=== PATIENT | female | born 1930 | race Caucasian/White ===

== ENCOUNTER 2017-01-15 14:17 | Emergency (ER) | payer OTHER ==
[~2017-01-15] VITALS: Ht 165.1 cm; Wt 65.3 kg
[~2017-01-15 14:17] MED LIST: CHILDREN'S ASPI81 M1 PO; HYDROCHLOROTHIA25 M1 PO; LEVOTHYROXINE PO; LEVOTHYROXINE88 MCG PO; LISINOPRIL40 M1 PO; LOPRESSOR50 M1 PO; SIMVASTATIN40 M1 PO
[2017-01-15 15:07] LABS: ABSOLUTE BASOPHIL COUNT 0 /CUMM (0.0-0.2); ABSOLUTE EOSINOPHIL COUNT 0.1 /CUMM (0.0-0.7); ABSOLUTE GRANULOCYTE CT 7.6 /CUMM (1.4-6.5); ABSOLUTE LYMPH COUNT 1.1 /CUMM (1.2-3.4); ABSOLUTE MONOCYTE COUNT 0.6 /CUMM (0.10-0.60); BASOPHIL % 0.1 % (0.0-2.0); EOSINOPHIL % 0.9 % (0-5); GRANULOCYTE % 80.8 % (42.2-75.2); MEAN CORPUSCULAR HGB 29.8 PG (27.0-31.0); MEAN CORPUSCULAR HGB CONC 32.8 G/DL (33.0-37.0); MEAN CORPUSCULAR VOLUME 90.8 FL (81.0-99.0); MEAN PLATELET VOLUME 8.9 FL (7.4-10.4); PLATELET COUNT 212 /CUMM (130-400); RBC DISTRIBUTION WIDTH 13.7 % (11.5-14.5); WHITE BLOOD CELL COUNT 9.4 /CUMM (4.8-10.8)
[2017-01-15] MEDS ORDERED: PANTOPRAZOLE SO40 M1 PO (19:52)
--- NOTE | 2017-01-15 20:15 | ED AMS/SEIZURE/WEAK/DIZZY ---
History of Present Illness General Chief Complaint: General Adult Stated Complaint: BIBA HYPERTENSION,WEAKNESS Source: patient, family, old records Exam Limitations: no limitations Vital Signs & Intake/Output Vital Signs & Intake/Output Vital Signs Date Time Temp Pulse Resp B/P B/P Pulse O2 O2 Flow FiO2 Mean Ox Delivery Rate 01/15 2110 97.5 75 18 162/69 95 01/15 1745 98.2 62 16 171/63 95 Room Air 01/15 1431 98.0 100 16 189/81 93 Room Air Allergies Coded Allergies: Penicillins (RASH 01/15/17) codeine (N/V 01/15/17) Reconcile Medications Aspirin (Children's Aspirin) 81 MG TAB.CHEW 1 TAB PO DAILY HEART/BLOOD ( Reported) Hydrochlorothiazide 25 MG TABLET 1 TAB PO DAILY DIURETIC/BP (Reported) Levothyroxine Sodium 88 MCG TABLET 1 TAB PO DAILY THYROID (Reported) Lisinopril 40 MG TABLET 1 TAB PO DAILY BP (Reported) Metoprolol Tartrate (Lopressor) 50 MG TABLET 0.5 TAB PO BID HEART/BP ( Reported) Pantoprazole Sodium 40 MG TABLET.DR 1 TAB PO DAILY GI (Reported) Simvastatin (Simvastatin*) 40 MG TABLET 1 TAB PO QPM CHOLESTEROL (Reported) Core Measure Meds Pre-Hospital aspirin Triage Note: PT STATES SHE WAS CONCERNED ABOUT HER HTN STATES SHE TOOK HER BP AT HOME AND IT WAS HIGH SHE HAD NAUSEA AND FELT DIZZY. PT DENIES CHEST PAIN STATES SHE ONLY HAS LEG STIFFNESS. Triage Nurses Notes Reviewed? yes Onset: Just prior to arrival Duration: minute(s):, constant, gone now Timing: recent history Injury Environment: home Severity: mild Modifying Factors: Improves With: rest. LMP (ages 10-50): post menopausal : No Patient currently breastfeeds: No HPI: Prior to admission patient had episode of blurry vision transiently feeling lightheaded with nausea lasting less than 15 minutes resolving spontaneously. She denies fever chills vomiting diarrhea abdominal pain shortness of breath dysuria rash bleeding headache change in bowel bladder habit. Past History Travel History Traveled to [place] past 21 day No Medical History Any Pertinent Medical History? see below for history Cardiovascular: hypertension, hyperlipidemia, CAROTID ARTERY STENOSIS Gastrointestinal: HIATAL HERNIA Musculoskeletal: osteoporosis Endocrine: hypothyroidism Surgical History Surgical History: non-contributory Psychosocial History What is your primary language Bel[place]ian Tobacco Use: Quit >30 days ago ETOH Use: denies use Illicit Drug Use: denies illicit drug use Family History Hx Contributory? No Review of Systems Review of Systems Constitutional: Reports: see HPI, weakness. EENTM: Reports: see HPI, blurred vision. Respiratory: Reports: no symptoms. Cardiovascular: Reports: no symptoms. GI: Reports: see HPI, nausea. Genitourinary: Reports: no symptoms. Musculoskeletal: Reports: no symptoms. Skin: Reports: no symptoms. Neurological/Psychological: Reports: no symptoms. Hematologic/Endocrine: Reports: no symptoms. Immunologic/Allergic: Reports: no symptoms. All Other Systems: Reviewed and Negative Physical Exam Physical Exam General Appearance: well developed/nourished, alert, awake, anxious, comfortable Head: atraumatic, normal appearance Eyes: Bilateral: normal appearance, PERRL, EOMI. Ears, Nose, Throat: normal pharynx, normal ENT inspection Neck: normal inspection, supple, full range of motion, no midline tenderness Respiratory: normal breath sounds, chest non-tender, no respiratory distress, quiet respiration, lungs clear Cardiovascular: regular rate/rhythm, normal peripheral pulses, norml femoral pulses equa Peripheral Pulses: 4+ carotid (R), 4+ carotid (L) Gastrointestinal: normal bowel sounds, soft, non-tender, no organomegaly Back: normal inspection, normal range of motion Extremities: normal range of motion, pedal edema (left greater than right), stasis dermatitis Neurologic/Psych: no motor/sensory deficits, awake, alert, oriented x 3, normal gait, normal mood/affect, metal polisher II-XII nml as tested Reflexes: 2+: bicep (R), bicep (L). Skin: intact, warm/dry Lymphatic: no anterior cervical sonal Core Measures ACS in differential dx? Yes ASA ordered for poss ACS? No-ACS ruled out CVA/TIA Diagnosis: No Severe Sepsis Present: No Septic Shock Present: No Progress Differential Diagnosis: arrythmia, anemia, benign positional vertigo, CVA/stroke , dehydration, drug intoxication, electrolyte imbalance, vertebrobasilar insuff Plan of Care: Orders Procedure Date/time Status LIPASE 01/16 2024 Complete Add-on Test (ER Only) 01/16 2016 Active TROPONIN LEVEL 01/15 1957 Complete LIPASE 01/15 1957 Complete Add-on Test (ER Only) 01/15 151 Active TROPONIN LEVEL 01/15 1513 Active TSH REFLEX 01/15 1500 Active TROPONIN LEVEL 01/15 1500 Active TOTAL TRIODOTHYROXINE 01/15 1500 Active MAGNESIUM 01/15 1500 Active FREE T4 01/15 1500 Active EKG 01/15 1434 Active COMPREHENSIVE METABOLIC PANEL 01/15 1433 Active CBC WITHOUT DIFFERENTIAL 01/15 1433 Complete Laboratory Tests 01/15/172023: Troponin I < 0.01, Lipase 114 01/15/17 1500: Anion Gap 11, Estimated GFR 47 L, BUN/Creatinine Ratio 40.9 H, Glucose 92, Calcium 9.6, Magnesium 2.0, Total Bilirubin 0.6, AST 24, ALT 41, Alkaline Phosphatase 74, Troponin I < 0.01, Total Protein 6.3, Albumin 4.2, Globulin 2.1, Albumin/Globulin Ratio 2.0, Free T4 1.62, Total T3 Pending, TSH &T3 &Free T4 Intrp 0.190 L, CBC w Diff NO MAN DIFF REQ, RBC 4.30, MCV 90.8, MCH 29.8, RDW 13.7, MPV 8.9, Gran % 80.8 H, Lymphocytes % 11.7 L, Monocytes % 6.5, Eosinophils % 0.9, Basophils % 0.1, Absolute Granulocytes 7.6 H, Absolute Lymphocytes 1.1 L, Absolute Monocytes 0.6, Absolute Eosinophils 0.1, Absolute Basophils 0, PUBS MCHC 32.8 L Diagnostic Imaging: Viewed by Me: CT Scan. Discussed w/RAD: CT Scan. Radiology Impression: no acute abnormality Initial ED EKG: normal axis, normal intervals, normal p-waves, normal QRS complex, normal sinus rhythm, no ST T wave changes Prior EKG: unchanged Rhythm Strip: normal sinus rhythm Departure Departure Time of Disposition: 2144 Disposition: HOME OR SELF CARE Condition: Stable Clinical Impression Primary Impression: Dehydration syndrome Secondary Impressions: Hypertension Qualifiers: Hypertension type: essential hypertension Qualified Code: I10 - Essential (primary) hypertension Referrals: PUCKETT MARTY CONDE (PCP/Family) Departure Forms: Customer Survey General Discharge Information
--- NOTE | 2017-01-15 21:31 | CT SCAN REPORT ---
EXAMINATION: CT HEAD WITHOUT CONTRAST CLINICAL INFORMATION: Weakness. Visual changes. COMPARISON: None. TECHNIQUE: Contiguous axial imaging was performed from the skull base to vertex without intravenous contrast. DLP: 553 mGy-cm. FINDINGS: There is no evidence of acute intracranial hemorrhage or territorial infarction. No abnormal mass effect or midline shift is seen. Lucas to white matter differentiation is well preserved. No extra-axial fluid collections are identified. No hydrocephalus. No significant volume loss. There is no abnormal attenuation within the brain parenchyma. The osseous structures and soft tissues are normal. The mastoid air cells and visualized portions of the paranasal sinuses are well aerated. IMPRESSION: No acute intracranial pathology.
[2017-01-15 22:10] VITALS: BP 168/75
== END 2017-01-15 22:21 ==
LOC: ERH 14:17
PROVIDERS: Emergency Medicine
DX: E86.0 Dehydration (principal); I10 Essential (primary) hypertension; Z87.891 Personal history of nicotine dependence
CPT/HCPCS: 93005; 93010; 96360